=== PATIENT | female | born 1975 | race American Indian/Alaskan Native ===

== ENCOUNTER 2017-04-15 10:22 | Emergency (ER) | payer OTHER ==
[2017-04-15 10:38] VITALS: BP 148/93
--- NOTE | 2017-04-15 11:49 | Emergency Department Report ---
Blank Doc - Documentation Documentation: Patient is a 42-year-old [place] female with no significant cardiac history who is presenting with right-sided chest discomfort. Patient states she woke up with some chest discomfort that is aching type feeling. Patient states there is been no heavy lifting is nonexertional is nonpleuritic. Patient does not smoke is not diabetic she is on low dose of blood pressure medicine. EKG chest x-ray and basic lab work has been ordered. A troponin has been ordered as well. Patient will continue care with [facility]
--- NOTE | 2017-04-15 12:08 | XRay Report ---
ROUTINE CHEST, TWO VIEWS: HISTORY: chest pain. The trachea, heart, mediastinal contour, lung tomlinson and bony thorax are unremarkable. IMPRESSION: Unremarkable chest x-ray.
[2017-04-15 12:27] LABS: Basophils # (Auto) 0.1 K/mm3 (0.0-0.1); Basophils % (Auto) 1.3 % (0.0-1.8); Eosinophils # (Auto) 0.1 K/mm3 (0.0-0.4); Eosinophils % (Auto) 1.1 % (0.0-4.3); Hematocrit 36.2 % (30.3-42.9); Hemoglobin 12.4 gm/dl (10.1-14.3); Lymphocytes % (Auto) 35.1 % (13.4-35.0); Mean Corpuscular HGB Conc 34 % (30-34); Mean Corpuscular Hemoglobin 27 pg (28-32); Mean Corpuscular Volume 78 fl (79-97); Monocytes # (Auto) 0.6 K/mm3 (0.0-0.8); Monocytes % (Auto) 9.9 % (0.0-7.3); Platelet Count 283 K/mm3 (140-440); Red Blood Count 4.67 M/mm3 (3.65-5.03); Red Cell Distribution Width 16.7 % (13.2-15.2)
[2017-04-15] MEDS ORDERED: TORADOL IM ONE (12:40)
[2017-04-15 12:42] LABS: BUN/Creatinine Ratio 15; Blood Urea Nitrogen 12 mg/dL (7-17); Calcium 8.9 mg/dL (8.4-10.2); Hemolysis Index 4
--- NOTE | 2017-04-15 12:43 | Emergency Department Report ---
ED Chest Pain HPI - General Chief Complaint: Chest Pain Stated Complaint: CHEST PAIN Time Seen by Provider: 04/15/17 11:42 Source: patient Mode of arrival: Ambulatory Limitations: No Limitations - History of Present Illness Initial Comments: This is a 42-year-old female nontoxic, well nourished in appearance, no acute signs of distress presents to the ED with c/o of left-sided chest discomfort. Patient denies any heavy lifting. Patient denies any recent travels, long car rides or with hospital stays. Patient denies any calf pain or calf tenderness. Patient denies any radiation of chest pain. Patient stated that chest discomfort comes and goes and stated that chest discomfort is resolved now but stated she believes will return. Patient stated she just went came down from a cold. Patient describes chest discomfort as aching type. She denies any shortness of breath, hemoptysis, fever, chills, nausea, vomiting, headache, stiff neck, numbness or tingling. Patient denies any drug allergies or significant past medical history. MD Complaint: chest pain -: This morning Pain Location: left chest Pain Radiation: none Severity: mild Severity scale (0 -10): 8 Quality: aching Consistency: intermittent, now resolved Improves With: nothing Worsens With: nothing re: denies: nausea, vomting, diaphoresis, dyspnea, sense of impending doom Other Symptoms: denies: cough, fever, syncope, rash, acid taste in mouth, leg swelling, palpitations, burping Treatments Prior to Arrival: none Aspirin use within the Past 7 Days: (0) No - Related Data On Oral Contraceptives: No Previous Rx's Medication Instructions Recorded Last Taken Type Ibuprofen [Motrin] 600 mg PO Q8H PRN #30 tablet 04/15/17 Unknown Rx Heart Score - HEART Score History: Slightly suspicious EKG: Normal Age: < 45 Risk factors: No known risk factors Troponin: < normal limit HEART Score: 0 ED Review of Systems ROS: Stated complaint: CHEST PAIN Other details as noted in HPI Constitutional: denies: chills, fever Eyes: denies: eye pain, eye discharge, vision change ENT: denies: ear pain, throat pain Respiratory: denies: cough, shortness of breath, wheezing Cardiovascular: chest pain. denies: palpitations Endocrine: no symptoms reported Gastrointestinal: denies: abdominal pain, nausea, diarrhea Genitourinary: denies: urgency, dysuria, discharge Musculoskeletal: denies: back pain, joint swelling, arthralgia Skin: denies: rash, lesions Neurological: denies: headache, weakness, paresthesias Psychiatric: denies: anxiety, depression Hematological/Lymphatic: denies: easy bleeding, easy bruising ED Past Medical Hx - Past Medical History Additional medical history: hypothyroidism - Medications Home Medications: Home Medications Medication Instructions Recorded Confirmed Last Taken Type Ibuprofen [Motrin] 600 mg PO Q8H PRN #30 tablet 04/15/17 Unknown Rx ED Physical Exam - General Limitations: No Limitations General appearance: alert, in no apparent distress - Head Head exam: Present: atraumatic, normocephalic - Eye Eye exam: Present: normal appearance, PERRL, EOMI Pupils: Present: normal accommodation - ENT ENT exam: Present: normal exam, normal orophraynx, mucous membranes moist, TM's normal bilaterally, normal external ear exam - Neck Neck exam: Present: normal inspection, full ROM. Absent: tenderness, meningismus, lymphadenopathy, thyromegaly - Respiratory Respiratory exam: Present: normal lung sounds bilaterally. Absent: respiratory distress, wheezes, rales, rhonchi, stridor, chest wall tenderness, accessory muscle use, decreased breath sounds, prolonged expiratory - Cardiovascular Cardiovascular Exam: Present: regular rate, normal rhythm, normal heart sounds. Absent: irregular rhythm, systolic murmur, diastolic murmur, rubs, gallop - GI/Abdominal GI/Abdominal exam: Present: soft, normal bowel sounds. Absent: distended, tenderness, guarding, rebound, rigid, diminished bowel sounds - Rectal Rectal exam: Present: deferred - Extremities Exam Extremities exam: Present: normal inspection, full ROM, normal capillary refill. Absent: tenderness, pedal edema, joint swelling, calf tenderness - Back Exam Back exam: Present: normal inspection, full ROM. Absent: tenderness, CVA tenderness (R), CVA tenderness (L), muscle spasm, paraspinal tenderness, vertebral tenderness, rash noted - Neurological Exam Neurological exam: Present: alert, oriented X3, CN II-XII intact, normal gait, reflexes normal - Psychiatric Psychiatric exam: Present: normal affect, normal mood - Skin Skin exam: Present: warm, dry, intact, normal color. Absent: rash ED Course Vital Signs 04/15/17 04/15/17 10:34 12:45 Temperature 97.8 F Pulse Rate 108 H Respiratory 16 18 Rate Blood Pressure 148/93 O2 Sat by Pulse 96 Oximetry - Reevaluation(s) Reevaluation #1: 04/15/17 12:45 Patient is speaking in full sentences with no signs of distress noted. ZORA score - Zora Score Age > 65: (0) No Aspirin use within the Past 7 Days: (0) No 3 or more CAD Risk Factors: (0) No 2 or more Angina events in past 24 hrs: (0) No Known CAD with more than 50% Stenosis: (0) No Elevated Cardiac Markers: (0) No ST Deviation Greater than 0.5mm: (0) No ZORA Score: 0 ED Medical Decision Making - Lab Data Result diagrams: 04/15/17 12:14 04/15/17 12:14 - EKG Data When compared to previous EKG there are: no significant change Interpretation: no acute changes, normal EKG 04/15/17 12:46 Normal sinus rhythm with no ST abnormalities - Medical Decision Making This is a 42-year-old female that presents with chest pain. Patient is stable and was examined by me and Dr. Pearl. EKG obtained normal. Chest x-ray, CBC, BMP, troponin within normal limits. Patient received Toradol 30 mg IM in the ED with symptoms has resolved and subsided. Patient received Motrin at discharge. Patient was instructed Follow-up with a primary care doctor in 3-5 days or if symptoms worsen and continue return to emergency room as soon as possible. At time of discharge, the patient does not seem toxic or ill in appearance. No acute signs of distress noted. Patient agrees to discharge treatment plan of care. No further questions noted by the patient. Critical care attestation.: If time is entered above; I have spent that time in minutes in the direct care of this critically ill patient, excluding procedure time. ED Disposition Clinical Impression: Chest pain Qualifiers: Chest pain type: unspecified Qualified Code(s): R07.9 - Chest pain, unspecified Disposition: DC-01 TO HOME OR SELFCARE Is pt being admited?: No Does the pt Need Aspirin: No Condition: Stable Instructions: Chest Pain (ED), Ibuprofen (By mouth) Additional Instructions: Follow-up with a primary care doctor in 3-5 days or if symptoms worsen and continue return to emergency room as soon as possible. Prescriptions: Ibuprofen [Motrin] 600 mg PO Q8H PRN #30 tablet PRN Reason: Pain Referrals: PRIMARY CARE, [Referring] - 3-5 Days [facility] [Outside] - 3-5 Days [facility] [Outside] - 3-5 Days SANDRA SANCHEZ MD [Staff Physician] - 3-5 Days Forms: Work/School Release Form(ED)
== END 2017-04-15 13:19 | disposition home or self-care (01) ==
LOC: ED 10:22
DX: R07.9 Chest pain, unspecified (principal); E03.9 Hypothyroidism, unspecified
CPT/HCPCS: 36415; 71046; 80048; 84484; 85025; 93005; 93010; 96372; 99284; J1885

== ENCOUNTER 2020-03-08 13:51 | Outpatient (CLI) | payer OTHER ==
--- NOTE | 2020-03-08 15:47 | Mammography Report ---
BILATERAL DIGITAL DIAGNOSTIC MAMMOGRAM WITH CAD , 03/08/2020 RIGHT LIMITED BREAST ULTRASOUND CLINICAL INFORMATION / INDICATION: Palpable right breast lump TECHNIQUE: Digital bilateral mammographic imaging was performed. Spot compression views were obtained . Limited ultrasound was performed. This examination was interpreted with the benefit of Computer-Aid ed Detection (CAD) analysis. COMPARISON: None available. FINDINGS: Breast Density: There are scattered areas of fibroglandular density. MAMMOGRAPHIC FINDINGS: No dominant mass, suspicious calcifications, or architectural distortion in ei ther breast. Spot compression views of the right breast laterally, corresponding to patient's palpabl e lump does not reveal any focal asymmetry, mass, or suspicious calcifications. ULTRASOUND FINDINGS: Targeted ultrasound evaluation was performed of the area of interest. Sonograp hic evaluation of the right lateral breast at 9-10:00, corresponding to the palpable lump per patient , does not reveal any abnormal finding. No solid mass, cyst, or suspicious shadowing is identified to account for the complaint of a palpable lump. IMPRESSION: No mammographic or sonographic evidence of malignancy. Additionally, there is no mammogra phic or sonographic correlate to account for the patient's complaint of a right breast palpable lump. Please correlate with clinical exam. Follow up recommendation: Routine yearly BI-RADS Category 2: Benign. A "normal" or negative report should not discourage follow up or biopsy of a clinically significant f inding. A written summary of these findings will be mailed to the patient. The patient will be entered into a mammography reporting system which will generate a reminder letter for the patient's next appointmen t at the appropriate interval. According to the [employer], yearly mammograms are recommended starting at age 40 and continuing as long as a woman is in good health. Breast MRI is recommended for women with an oanh roximately 20-25% or greater lifetime risk of breast cancer, including women with a strong family his tory of breast or ovarian cancer and women who have been treated for Hodgkin's disease. Signer Name: Candice Hayward MD Signed: 03/08/2020 3:43 PM Workstation Name: [id number]
--- NOTE | 2020-03-08 16:05 | Ultrasound Report ---
ULTRASOUND BREAST RIGHT LIMITED, 03/08/2020 CLINICAL INFORMATION / INDICATION: Palp lump right breast f/u mammo. TECHNIQUE: Targeted ultrasound evaluation was performed of the area of interest. COMPARISON: Mammogram performed today FINDINGS: Sonographic evaluation of the palpable lump in the right lateral breast at 9-10:00 is unremarkable. N o mass, cyst, or abnormal area of shadowing is identified to account for the palpable lump. IMPRESSION: No sonographic evidence of malignancy. Follow up recommendation: Routine yearlyPlease correlate clinically with physical exam. BI-RADS Category 2: Benign. A normal or "negative" report should not preclude biopsy or follow-up of a clinically suspicious find ing. Signer Name: Candice Hayward MD Signed: 03/08/2020 4:01 PM Workstation Name: [id number]
== END 2020-03-08 13:52 | disposition home or self-care (01) ==
LOC: SPVWC 13:51
PROVIDERS: ATTEND Physician Assistant
DX: N63.11 Unspecified lump in the right breast, upper outer quadrant (principal)
CPT/HCPCS: 77066

== ENCOUNTER 2021-05-09 09:08 | Outpatient (CLI) | payer OTHER ==
--- NOTE | 2021-05-10 10:57 | Mammography Report ---
DIGITAL SCREENING MAMMOGRAM WITH CAD, 05/09/2021 CLINICAL INFORMATION / INDICATION: Routine screening mammography. SCREENING MAMMO TECHNIQUE: Digital bilateral 2D mammography was obtained in the craniocaudal and mediolateral obliqu e projections. This examination was interpreted with the benefit of Computer-Aided Detection analysis . COMPARISON: 03/08/20, 04/28/15, 12/14/12 FINDINGS: Breast Density: There are scattered areas of fibroglandular density. No dominant mass, suspicious calcifications, or architectural distortion in either breast. Left breast benign-appearing nodule is stable. IMPRESSION: No mammographic evidence of malignancy. No significant change. Follow up recommendation: Routine yearly BI-RADS Category 2: BENIGN. A "normal" or negative report should not discourage follow up or biopsy of a clinically significant f inding. A written summary of these findings will be mailed to the patient. The patient will be entered into a mammography reporting system which will generate a reminder letter for the patient's next appointmen t at the appropriate interval. The [employer] recommends yearly mammograms starting at age 40 and continuing as l corry as a woman is in good health. Breast MRI is recommended for women with an approximate 20-25% or greater lifetime risk of breast cancer, including women with a strong family history of breast or ova yvette cancer or who have been treated for Hodgkin's disease. Signer Name: Tati Cedeño MD Signed: 05/10/2021 10:53 AM Workstation Name: [id number]
== END 2021-05-09 09:09 | disposition home or self-care (01) ==
LOC: SPVWC 09:08
PROVIDERS: ATTEND Physician Assistant
DX: Z12.31 Encounter for screening mammogram for malignant neoplasm of breast (principal); N63.20 Unspecified lump in the left breast, unspecified quadrant
CPT/HCPCS: 77067